=== PATIENT | female | born 1945 | race Caucasian/White ===

== ENCOUNTER → 2016-12-03 | Outpatient (CLI) | payer OTHER ==
[~2016-12-03] VITALS: Ht 165.1 cm; Wt 106.6 kg
[~2016-12-03] MED LIST: ALEVE220 M1 PO; ATENOLOL 100MG100 M2 PO; ATENOLOL 100MG100 MG; ATIVAN0.5 MG PO; BIOTIN1 M1 PO; BUPROPION; CALCIUM CITRAT1 EA15; CELEXA 20 MG TA20 M1 PO; CIPRO500 MG PO; COLACE100 MG PO; COZAAR 25 MG TA25 M1; CRESTOR; CRESTOR10 MG PO; DIOVAN; DIOVAN320 MG PO; ESTER-C 1,0001 EACH; ESTRACE1 TUBE; EVISTA; EVISTA PO; EVISTA60 MG; HYDROCODONE-APA1 TA1 PO; LANOXIN 0.120.125 M1; LASIX; LASIX 20 MG TAB20 MG PO; LASIX 40 MG TAB40 M2 PO; LEVAQUIN 500 M500 M2 PO; LOSARTAN POTAS100 MG PO; MELATONIN10 M3; MELATONIN3 MG PO; METOPROLOL SUCC25 M1 PO; NORVASC10 MG PO; OSTEO BI-FLEX1 EAC1; OSTEO BI-FLEX1 EAC1 PO; OXYBUTYNIN 5 MG5 M2; POTASSIUM20 PO; PRADAXA150 MG PO; SENOKOT-S1 TA1 PO; VITAMIN B-12500 MCG PO; VITAMINC500 PO; WELLBUTRIN SR150 MG PO; XARELTO10 M1; XARELTO20 MG; XARELTO20 MG PO
--- NOTE | ~2016-12-03 | CATHLAB ---
Formerly [facility] [place] [address] INVASIVE PROCEDURE REPORT Name: SUZANNE DE PAZ Room #: REG CL [facility]#: [id number] Admission: 12/03/16 Attend Phys: Hunter Quiles MD Discharge: Date of : 47 Date of Service: 12/03/16 0911 Report #: [id number] THIS REPORT FOR: //name// CC: Hunter Zhou DATE OF SERVICE: 12/03/2016 CARDIAC CATHETERIZATION REPORT INDICATION: Dyspnea/abnormal nuclear stress test. Full risks, benefits and alternatives of cardiac catheterization were explained to the patient. All questions were answered. Informed consent was obtained. A Barbeau test was performed on the right radial artery. The right wrist area was prepped and draped in a sterile manner. Lidocaine was given subcutaneously. A 6-Citizen Of [place] sheath was inserted into the right radial artery via modified Seldinger technique. Nitroglycerin and verapamil was injected through that sheath. 3000 units of heparin was given through peripheral IV. CORONARY ANATOMY: The left main artery is a large caliber vessel, with no flow-limiting lesions. The LAD is a moderate-sized caliber vessel, travelling down the anterior wall and wrapping around the apex. There is mild calcification in the proximal segment, with mild disease, 20%. The first and second diagonal arteries are [id number]-iy-[id number] sized caliber vessels, with no flow-limiting lesions. There is a ramus artery, of moderate-sized caliber, with no flow-limiting lesions. The left circumflex artery gives off 1 moderate-sized obtuse marginal artery, with no flow-limiting lesions. The RCA is a dominant vessel, supplying a PDA and posterolateral branches. There were no flow-limiting lesions in the RCA. The LVEDP is approximately 23 mmHg. There is no gradient across the outflow tract. A ventriculogram was not performed in view of a mildly elevated creatinine level. At the end of the procedure, the sheath was removed and a Vasc band was applied for hemostasis. [facility] [address] [place] [address] INVASIVE PROCEDURE REPORT Name: DE PAZSUZANNE EMILY Room #: REG [facility]#: [id number] Admission: 12/03/16 Attend Phys: Hunter Quiles MD Discharge: Date of : 47 Date of Service: 12/03/16910 Report #: [id number] IMPRESSION: 1. Mild disease in the left anterior descending. 2. Right dominant coronary system. 3. Recommend medical therapy. <ELECTRONICALLY SIGNED> By: Hunter Quiles MD 12/03/1645 0 Hunter Quiles MD /nt
[2016-12-03 07:03] VITALS: BP 124/76
[2016-12-03 07:15] LABS: HEMOGLOBIN 10.8 gm/dL (12.0-15.0)
[2016-12-03 07:42] LABS: CREATININE 1.5 mg/dL (0.6-1.3); POTASSIUM 3.6 mmol/L (3.5-5.1)
[2016-12-03 07:52] LABS: HEMATOCRIT 31.1 % (37.0-47.0); MCH 35.4 pg (26.0-34.0); MCHC 34.7 % (28.0-37.0); MCV 102.3 fL (80.0-100.0); RBC 3.04 mil/uL (4.20-5.00); WBC 4.5 thou/uL (4.0-11.0)
== END | disposition home or self-care (01) ==
LOC: CATH 06:32
PROVIDERS: Internal Medicine Cardiovascular Disease
DX: I25.10 Atherosclerotic heart disease of native coronary artery without angina pectoris (principal); I10 Essential (primary) hypertension; E78.00 Pure hypercholesterolemia, unspecified; E66.09 Other obesity due to excess calories; F32.9 Major depressive disorder, single episode, unspecified; I48.91 Unspecified atrial fibrillation; Z98.890 Other specified postprocedural states; Z90.710 Acquired absence of both cervix and uterus; Z87.891 Personal history of nicotine dependence

== ENCOUNTER 2017-04-26 14:42 | Inpatient (IN) | payer OTHER ==
[~2017-04-26] VITALS: Ht 167.6 cm; Wt 106.9 kg
--- NOTE | ~2017-04-26 | EKG ---
[address] [address] ELECTROCARDIOGRAM REPORT Name: SUZANNE DE PAZ Room #: 217-[facility]#: [id number] Admission: 04/26/17 Attend Phys: Carmenza Max MD Discharge: 04/27/17 Date of : 47 Report #: [id number] THIS REPORT FOR: //name// [facility] Test Date: 2017-04-27 Test Time: 09:13:51 Pat Name: SUZANNE DE PAZ Department: Room: 217 Gender: F Vp Software Engineering: Zak BHAGAT : 1945 Requested By: Keke Quintana Order Number: [id number] MD: Jerad Perez Measurements Intervals [place] Rate: 86 P: NE: QRS: 21 QRSD: 100 T: 16 QT: 384 QTc: 460 Interpretive Statements Atrial fibrillation Low voltage, extremity and precordial leads Compared to ECG 02/02/2016 21:48:38 T-wave abnormality no longer present Electronically Signed On 04-28-2017 12:46:01 CDT by Jerad Perez [email or web address] <ELECTRONICALLY SIGNED> By: Jerad Perez MD 04/28/17 1246 2 2 Jerad Perez MD /CHRISTIN
[2017-04-26 14:52] VITALS: BP 178/153
[2017-04-26 15:08] LABS: HEMATOCRIT 32.5 % (37.0-47.0); HEMOGLOBIN 11.4 gm/dL (12.0-15.0); MCH 37.6 pg (26.0-34.0); MCHC 35.2 g/dL (28.0-37.0); MCV 106.8 fL (80.0-100.0); PLATELET COUNT 165 thou/uL (150-400); RBC 3.04 mil/uL (4.20-5.00); RDW 14.5 % (10.5-14.5)
[2017-04-26 15:11] LABS: MANUAL DIFF YES
[2017-04-26 15:17] LABS: CREATININE 2.5 mg/dL (0.6-1.0); POTASSIUM 4.8 mmol/L (3.5-5.1)
[2017-04-26 15:54] LABS: ABSOLUTE NEUTROPHILS 3.8 thou/uL (1.4-8.2); TOTAL CELL COUNT 100
[2017-04-26 15:56] LABS: POLYCHROMASIA OCCASIONAL
[2017-04-26 15:58] LABS: ANISOCYTOSIS 2+
[2017-04-26 15:59] LABS: MACROCYTES 1+
[2017-04-26 17:24] VITALS: BP 111/56
[2017-04-26 17:45] VITALS: BP 109/64
[2017-04-26 18:26] LABS: APTT 51.3 Seconds (24.5-32.8); INR 1.6; PROTIME 16.7 Seconds (9.3-11.4)
[2017-04-26 20:32] VITALS: BP 122/66
[2017-04-26] MEDS ORDERED: POTASSIUM20 PO (20:37)
[2017-04-26] MEDS ORDERED: LASIX 20 MG TAB20 MG PO (20:38)
[2017-04-26] MEDS ORDERED: PRADAXA75 MG PO (20:38)
[2017-04-27] VITALS (7 sets, daily range): BP systolic 117–133; BP diastolic 76–83
[2017-04-27 04:15] LABS: HEMATOCRIT 30.4 % (37.0-47.0); HEMOGLOBIN 10.7 gm/dL (12.0-15.0); MCH 37.8 pg (26.0-34.0); MCHC 35.1 g/dL (28.0-37.0); MCV 107.7 fL (80.0-100.0); PLATELET COUNT 106 thou/uL (150-400); RBC 2.82 mil/uL (4.20-5.00); RDW 13.8 % (10.5-14.5); WBC 5.5 thou/uL (4.0-11.0)
[2017-04-27 04:16] LABS: MANUAL DIFF YES
[2017-04-27 04:26] LABS: CALCIUM 8.3 mg/dL (8.5-10.1); CREATININE 1.7 mg/dL (0.6-1.0); POTASSIUM 4.3 mmol/L (3.5-5.1)
[2017-04-27 04:43] LABS: ABSOLUTE NEUTROPHILS 2.9 thou/uL (1.4-8.2); MACROCYTES 2+; METAMYELOCYTES 1 %; MYELOCYTES 1 %; TOTAL CELL COUNT 100
== END 2017-04-27 18:45 | disposition home or self-care (01) | DRG 896 ==
LOC: ER 14:42 → 2N 16:49 → EROBS 16:49 → 2N 17:25
PROVIDERS: Emergency Medicine; Internal Medicine Endocrinology, Diabetes & Metabolism
DX: F10.239 Alcohol dependence with withdrawal, unspecified (principal); G92 Toxic encephalopathy; N17.9 Acute kidney failure, unspecified; E78.00 Pure hypercholesterolemia, unspecified; Z79.899 Other long term (current) drug therapy; I11.0 Hypertensive heart disease with heart failure; I50.9 Heart failure, unspecified; F32.9 Major depressive disorder, single episode, unspecified; I48.2 Chronic atrial fibrillation; I95.9 Hypotension, unspecified; E86.9 Volume depletion, unspecified; E78.5 Hyperlipidemia, unspecified; Z90.710 Acquired absence of both cervix and uterus; Z88.0 Allergy status to penicillin; Z87.891 Personal history of nicotine dependence; Z79.01 Long term (current) use of anticoagulants; Z98.84 Bariatric surgery status; Z82.49 Family history of ischemic heart disease and other diseases of the circulatory system; S00.83XA Contusion of other part of head, initial encounter; W18.39XA Other fall on same level, initial encounter; Y93.89 Activity, other specified; Y92.89 Other specified places as the place of occurrence of the external cause; Y99.8 Other external cause status
CPT/HCPCS: 10081

== ENCOUNTER → 2018-10-18 | Outpatient (CLI) | payer OTHER ==
[~2018-10-18] MED LIST changes: +PRADAXA75 MG PO
--- NOTE | ~2018-10-18 | 2DMMODE ---
[facility] [place] [address] 2 D/M-MODE ECHOCARDIOGRAM Name: SUZANNE DE PAZ Room #: REG [facility]#: [id number] Admission: 10/18/18 Attend Phys: Hunter Quiles MD Discharge: Date of : 47 Date of Service: 10/18/18 1308 Report #: [id number] THIS REPORT FOR: //name// APPROVED REPORT Study performed: 10/18/2018 11:13:12 EXAM: Comprehensive 2D, Doppler, and color-flow Echocardiogram Patient Location: Out-Patient Room #: Echo 2 Status: routine BSA: 2.10 HR: 90 bpm BP: 140/72 mmHg Rhythm: Atrial Fibrillation Other Information Study Quality: Adequate Technically limited study due to body habitus. Risk Factors: Cardiac Risk Factors: FHX of CAD Indications Atrial Fibrillation 2D Dimensions RVDd: 36.29 mm IVSd: 13.65 (7-11mm) LVOT Diam: 19.98 (18-24mm) LVDd: 52.20 mm PWd: 11.27 (7-11mm) Ascending Ao: 33.32 (22-36mm) LVDs: 37.05 (25-40mm) Aortic Root: 27.01 mm IVC: 25.00 mm Volumes Left Atrial Volume (Systole) Single Plane 4CH: 86.59 mL Single Plane 2CH: 51.79 mL LA ESV Index: 35.00 mL/m2 Aortic Valve AoV Peak Farhat.: 1.58 m/s AO Peak Gr.: 9.93 mmHg LVOT Max P.80 mmHg LVOT Max V: 1.09 m/s JOAN Vmax: 2.18 cm2 [facility] [address] [place] [address] 2 D/M-MODE ECHOCARDIOGRAM Name: SUZANNE DE PAZ Room #: REG [facility]#: [id number] Admission: 10/18/18 Attend Phys: Hunter Quiles MD Discharge: Date of : 47 Date of Service: 10/18/18 1308 Report #: [id number] Pulmonary Valve PV Peak Farhat.: 1.01 m/s PV Peak Gr.: 4.10 mmHg Tricuspid Valve TR Peak Farhat.: 3.34 m/s TR Peak Gr.: 44.70 mmHg PA Pressure: 54.70 mmHg Left Ventricle The left ventricle is normal size. There is normal LV segmental wall motion. There is normal left ventricular wall thickness. The left ventricular systolic function is normal. The left ventricular ejection fraction is within the normal range. LVEF is 55-60%. This study is not technically sufficient to allow evaluation of the LV diastolic function due to atrial fibrillation. Right Ventricle The right ventricle is normal size. The right ventricular systolic function is normal. Atria Left atrium is dilated. Right atrium is dilated. Aortic Valve Aortic valve is calcified. Aortic valve is grossly normal in structure. No aortic regurgitation is present. There is no aortic valvular stenosis. Mitral Valve Mild mitral annular calcification. The mitral valve is normal in structure and function. Mild mitral regurgitation. No evidence of mitral valve stenosis. Tricuspid Valve The tricuspid valve is normal in structure. Moderate tricuspid regurgitation. Estimated PAP 54.70 mmHg. Moderate pulmonary hypertension. Pulmonic Valve The pulmonary valve is normal in structure. Trace pulmonic regurgitation. Great Vessels The aortic root is normal in size. The ascending aorta is normal in size. IVC is dilated and collapses >50% with inspiration. [facility] [address] [place] [address] 2 D/M-MODE ECHOCARDIOGRAM Name: SUZANNE DE PAZ Room #: REG [facility]#: [id number] Admission: 10/18/18 Attend Phys: Hunter Quiles MD Discharge: Date of : 47 Date of Service: 10/18/18 1308 Report #: [id number] Pericardium There is no pericardial effusion. <Conclusion> The left ventricle is normal size. There is normal left ventricular wall thickness. The left ventricular systolic function is normal. The right ventricle is normal size. Left atrium is dilated. Right atrium is dilated. Aortic valve is calcified. Mild mitral regurgitation. Moderate tricuspid regurgitation. Estimated PAP 54.70 mmHg. Moderate pulmonary hypertension. <ELECTRONICALLY SIGNED> By: Hunter Quiles MD 10/18/181307 07 07 Hunter Quiles MD /INF
== END ==
LOC: CV 09:06
DX: I08.1 Rheumatic disorders of both mitral and tricuspid valves (principal); I48.91 Unspecified atrial fibrillation; I27.20 Pulmonary hypertension, unspecified

== ENCOUNTER 2019-12-28 16:46 | Inpatient (IN) | payer OTHER ==
[~2019-12-28] VITALS: Ht 167.6 cm; Wt 115.6 kg
[2019-12-28 16:49] VITALS: BP 169/117
[2019-12-28 19:40] LABS: ABSOLUTE NEUTROPHILS 3.9 thou/uL (1.4-8.2); BASOPHILS 0.3 % (0.0-2.0); EOSINOPHILS 0.2 % (0.0-3.0); HEMATOCRIT 43.2 % (37.0-47.0); HEMOGLOBIN 14.7 gm/dL (12.0-15.0); LYMPHOCYTES 10.1 % (24.0-44.0); MCH 33.4 pg (26.0-34.0); MCV 98.1 fL (80.0-100.0); PLATELET COUNT 111 thou/uL (150-400); POLYS 78.4 % (36.0-66.0); RDW 13.5 % (10.5-14.5)
[2019-12-28 19:43] LABS: CALCIUM 8.6 mg/dL (8.5-10.1); CREATININE 1.1 mg/dL (0.6-1.0); POTASSIUM 3.9 mmol/L (3.5-5.1)
[2019-12-28 19:49] LABS: ALBUMIN 3.7 g/dL (3.4-5.0); TOTAL BILIRUBIN 1.7 mg/dL (<0.1-1.0); TOTAL PROTEIN 8.4 g/dL (6.4-8.2)
[2019-12-28 21:42] LABS: URINE BILIRUBIN 1+ (Negative); URINE BLOOD 3+ (Negative); URINE CLARITY TURBID; URINE COLOR YELLOW; URINE GLUCOSE-RANDOM* NEGATIVE (Negative); URINE KETONES 1+ (Negative); URINE NITRITE-REFLEX NEGATIVE (Negative); URINE PROTEIN (DIPSTICK) TRACE (Negative)
[2019-12-28 21:47] LABS: URINE LEUKOCYTES-REFLEX 2+ (Negative)
[2019-12-28 22:11] LABS: SQUAMOUS 0-3 Few /LPF (0-3)
[2019-12-28 22:13] LABS: CASTS None Seen /LPF (None Seen)
[2019-12-28 22:14] LABS: CALCIUM OXALATE 4-10 Moderate /LPF (None Seen); URINE RBC 3-10 Few /HPF (0-2); URINE WBC-REFLEX 0-5 Rare /HPF (0-5)
[2019-12-28 23:11] VITALS: BP 142/78
[2019-12-29 00:04] VITALS: BP 117/75
[2019-12-29 00:46] VITALS: BP 128/96
[2019-12-29] MEDS ORDERED: EFFER-K 20 MEQ20 ME1 PO (01:19)
[2019-12-29] MEDS ORDERED: FUROSEMIDE 40 M40 MG PO (01:19)
[2019-12-29] MEDS ORDERED: METOPROLOL SUCC50 MG PO (01:20)
[2019-12-29] MEDS ORDERED: TRUSOPT OCUMETE10 ML EA. EYE (01:21)
[2019-12-29] MEDS ORDERED: ELIQUIS5 MG PO (01:22)
[2019-12-29] MEDS ORDERED: OSTEO BI-FLEX1 EAC1 PO (01:23)
[2019-12-29] MEDS ORDERED: MELATONIN10 M1 PO (01:24)
[2019-12-29] MEDS ORDERED: VITAMIN D32000 UNI2 PO (01:52)
--- NOTE | 2019-12-29 06:28 | NUR ---
ADMITTED FROM ER UNDER 'S CARE. EVALUATED BY THAO GRACIA WRAPPER REWINDER FOR . AXOX4. VSS. NO S/S ACUTE DISTRESS NOTED OR REPORTED AT THIS TIME. WILL CONT TO MONITOR FOR ANY CHANGES IN CONDITION.
[2019-12-29 07:10] VITALS: BP 137/91
[2019-12-29 09:27] LABS: HEMATOCRIT 39.4 % (37.0-47.0); HEMOGLOBIN 13.5 gm/dL (12.0-15.0); MCH 33.2 pg (26.0-34.0); MCHC 34.1 g/dL (28.0-37.0); MCV 97.3 fL (80.0-100.0); RBC 4.05 mil/uL (4.20-5.00); RDW 13.9 % (10.5-14.5); WBC 5.2 thou/uL (4.0-11.0)
[2019-12-29 09:52] LABS: CALCIUM 7.7 mg/dL (8.5-10.1); CREATININE 0.9 mg/dL (0.6-1.0); POTASSIUM 3.7 mmol/L (3.5-5.1)
[2019-12-29 09:59] LABS: ABSOLUTE NEUTROPHILS 3.4 thou/uL (1.4-8.2); MAGNESIUM 1.6 mg/dL (1.8-2.4); PLATELET COUNT 92 thou/uL (150-400); PLATELET ESTIMATE NORMAL
--- NOTE | 2019-12-29 12:15 | NUR ---
Received awake on bed. Due medications given as prescribed, able to swallow meds w/o difficulty. On room air, saturating at 97%. A+Ox4. On heart healthy diet- encouraged to eat and drink, pt says she does not have appetite today, offered snacks- will let nurse know if she wants any. With external alanis in place- output measured and recorded accordingly. With NS at 75cc/hr, infusing well at L upper arm. Assisted in ADLs. Pt coughing- with regular breathing treatments prescribed. Falls bundle in place. Visited by relative today. Pt complained of headache- PRN tylenol given as prescribed.
[2019-12-29 14:31] VITALS: BP 127/66
--- NOTE | 2019-12-29 14:48 | NUR ---
RECEIVED REPORT FROM JANNY JOHN ON 4W. PT IS AOX4, NO C/O PAIN AT THIS TIME, & VSS. PT EDUCATED EQUIPMENT MAINTENANCE TECHNICIAN LIGHT, FALL PRECAUTIONS IN PLACE. PT REPORTS SHE IS TIRED AND WOULD LIKE TO GO BACK TO SLEEP. WILL CONTINUE TO MONITOR.
--- NOTE | 2019-12-29 16:11 | NUR ---
PT ADMITTED RELATED TO UTI,SEPSIS. CM REVIEWED CHART AND SPOKE WITH CARE TEAM. CM MET WITH PT AT BEDSIDE THIS DAY. PT IS A&O X4. CM ROLE INTRODUCED. PT INDICATED SHE LIVES IN A HOUSE WITH HER SPOUSE WITH 2 STEPS TO ENTER AND NO STEPS INSIDE. PT INDICATED SHE HAS A 4WW FOR USE AT HOME. PT INIDCATED SHE PLANS TO RETURN HOME ONCE MEDICALLY STABLE. CM TO FOLLOW INDICATED WITH DC PLANNING.
[2019-12-29 20:11] VITALS: BP 141/83
[2019-12-29 22:53] VITALS: BP 141/83
--- NOTE | 2019-12-30 03:21 | NUR ---
ASSUMED CARE OF PATIENT AT SHIFT CHANGE. ASSESSMENT CHARTED. MEDICATIONS GIVEN PER MAR. PATIENT IS ALERT AND ORIENTED, CAN BE FORGETFUL AT TIMES, AND IS HARD OF HEARING. PATIENT DENIES PAIN. VSS, O2 SATS CURRENTLY 97% ON RA. PATIENT HAS A NON PRODUCTIVE COUGH AND EXPIRATORY WHEEZING. PROVIDER AWARE. CONTINUING TO RECIEVE BR. TX VIA RT. PATIENT RECIEVED DOSE OF IV ABX AND CURRENTLY RECIEVING NS AT 7SMLS/HR. IV FLUSHED W GOOD BLOOD RETURN, PATENT AND INTACT. PATIENT HAS BEEN GETTING UP WITH ASSIST OF 1 PERSON TO TOILET. TOLERATES WELL WITH MINIMAL SOA NOTED. PATIENT HAS SOME INCONTINENCE EPISODES AND WEARS BRIEFS FROM HOME. FALL PRECAUTIONS IN PLACE; BED ALARM ON PATIENT FORGETS TO CALL AT TIMES. CM IS FOLLOWING, PLAN IS TO D/C BACK HOME W SPOUSE ONCE MEDICALLY STABLE. WILL CONTINUE TO MONITOR AND FOLLOW PLAN OF CARE.
[2019-12-30 04:43] LABS: HEMATOCRIT 36.3 % (37.0-47.0); HEMOGLOBIN 12.3 gm/dL (12.0-15.0); MCH 33.1 pg (26.0-34.0); MCHC 33.9 g/dL (28.0-37.0); MCV 97.7 fL (80.0-100.0); RBC 3.72 mil/uL (4.20-5.00); RDW 13.7 % (10.5-14.5); WBC 3.9 thou/uL (4.0-11.0)
[2019-12-30 05:16] LABS: CALCIUM 7.6 mg/dL (8.5-10.1); CREATININE 0.8 mg/dL (0.6-1.0); POTASSIUM 3.6 mmol/L (3.5-5.1)
[2019-12-30 07:44] VITALS: BP 149/85
--- NOTE | 2019-12-30 16:04 | NUR ---
DISCHARGE PLANNING. ANTICIPATED WEEKEND DISCHARGE PLANNED. HOME WITH HOME HEALTH SERVICES. PATIENT REFERRAL FAXED TO [facility] PER REQUEST. CALL PLACED TO [facility] TO NOTIFY. SHOULD PATIENT BE DISCHARGED AND HOME HEALTH ORDERS WRITTEN, PLEASE FAX ORDERS TO [facility]. [facility] INTAKE CONTACT NUMBER [phone] FAX NUMBER [phone]. THANK YOU.
[2019-12-30 16:08] VITALS: BP 149/85
--- NOTE | 2019-12-30 16:20 | NUR ---
SW reviewed chart and spoke with nursing and attending physician. Pt [facility] from and is progressing towards goals for discharge. Discharge home is anticipated for tomorrow. [facility] can accept pt on service if needed. MARISSA is following to assist as needed with discharge planning.
[2019-12-30 19:41] VITALS: BP 157/93
[2019-12-30 21:21] VITALS: BP 157/93
--- NOTE | 2019-12-31 05:07 | NUR ---
ASSUMED CARE OF PATIENT AT SHIFT CHANGE. ASSESSMENT CHARTED. MEDICATIONS GIVEN PER JAN. PATIENT IS ALERT AND ORIENTED BUT CONTINUES TO SHOW SOME FORGETFULNESS. PATIENT CONTINUES TO HAVE A COUGH W LOOSE SPUTUM. PRN COUGH SUPPRESSANT ORDERED FROM CONSTRUCTION MILLWRIGHT PROVIDER AND ADMINISTERED. PATIENT IS WEARING BRIEFS FROM HOME D/T SOME EPISODES OF INCONTINENCE. PATIENT REPORTED HAVING A BM DURING THE DAY; LOOSE AND DIARRHEA LIKE. DENIED ANY ABDOMINAL PAIN OR TENDERNESS. LUNGS HAVE DECREASED WHEEZING BUT STILL COURSE. O2 SATS WNL ON RA. PER SW, PLAN IS TO D/C HOME W HOME HEALTH TODAY 12/31. CONTINUES TO GET UP W/O CALLING. BED ALARM ON, FREQUENT MONITORING DONE. IV SITE PATENT AND INTACT, COVERED W PROTECTIVE WRAP FROM HX OF PULLING IV'S OUT. WILL CONTINUE TO MONITOR AND FOLLOW PLAN OF CARE
[2019-12-31 07:53] VITALS: BP 163/91
[2019-12-31 08:52] VITALS: BP 163/91
--- NOTE | 2019-12-31 10:09 | NUR ---
PT A&OX4. AMBULATES WITH STAND BY ASSIST. IV INTACT IN R HAND. LS ARE COURSE AND DIMINISHED. HAS PRODUCTIVE COUGH STATES CLEAR IN COLOR. PT IS SLEEPY TODAY. BED ALARM SOFA INSPECTOR LIGHT W/I REACH.
[2019-12-31] MEDS ORDERED: CEFUROXIME500 MG PO (10:32)
[2019-12-31] MEDS ORDERED: TESSALON PERLE100 MG PO (10:32)
[2019-12-31] MEDS ORDERED: PROAIR HFA8.5 GM INH (10:34)
[2019-12-31 15:14] VITALS: BP 145/92
--- NOTE | 2019-12-31 16:40 | NUR ---
DC ORDERS RECIEVED. IV REMOVED FROM L HAND. DC INSTRUCTIONS, F/U APPOINTMENT AND SCRIPTS REVIEWED WITH PT. THIS RN ESCORTED PT VIA W/C TO [facility].
== END 2019-12-31 16:35 | disposition home health service (06) | DRG 872 ==
LOC: ER 16:46 → 4W 22:24 → EROBS 22:24 → 4N 22:24 → 4W 12-29 00:01 → 4N 12-29 14:00
PROVIDERS: Emergency Medicine; Nurse Practitioner; ADMIT Hospitalist
DX: A41.9 Sepsis, unspecified organism (principal); N39.0 Urinary tract infection, site not specified; E87.1 Hypo-osmolality and hyponatremia; N17.9 Acute kidney failure, unspecified; I48.21 Permanent atrial fibrillation; Z68.41 Body mass index [BMI] 40.0-44.9, adult; E78.00 Pure hypercholesterolemia, unspecified; F32.9 Major depressive disorder, single episode, unspecified; E86.0 Dehydration; E78.5 Hyperlipidemia, unspecified; I12.9 Hypertensive chronic kidney disease with stage 1 through stage 4 chronic kidney disease, or unspecified chronic kidney disease; N18.9 Chronic kidney disease, unspecified; E53.8 Deficiency of other specified B group vitamins; E55.9 Vitamin D deficiency, unspecified; R63.4 Abnormal weight loss; G47.00 Insomnia, unspecified; Z90.710 Acquired absence of both cervix and uterus; Z79.01 Long term (current) use of anticoagulants; Z82.49 Family history of ischemic heart disease and other diseases of the circulatory system; Z90.89 Acquired absence of other organs; Z79.899 Other long term (current) drug therapy; Z88.0 Allergy status to penicillin; Z87.891 Personal history of nicotine dependence
CPT/HCPCS: 10091

== ENCOUNTER → 2020-04-30 | Outpatient (CLI) | payer OTHER ==
[~2020-04-30] MED LIST changes: +CEFUROXIME500 MG PO; +EFFER-K 20 MEQ20 ME1 PO; +ELIQUIS5 MG PO; +FUROSEMIDE 40 M40 MG PO; +MELATONIN10 M1 PO; +METOPROLOL SUCC50 MG PO; +PROAIR HFA8.5 GM INH; +TESSALON PERLE100 MG PO; +TRUSOPT OCUMETE10 ML EA. EYE; +VITAMIN D32000 UNI2 PO
== END ==
LOC: SJCVCIMAG 11:17
PROVIDERS: ATTEND Internal Medicine Cardiovascular Disease
DX: I08.3 Combined rheumatic disorders of mitral, aortic and tricuspid valves (principal); R94.31 Abnormal electrocardiogram [ECG] [EKG]; I11.9 Hypertensive heart disease without heart failure; E66.9 Obesity, unspecified; I48.21 Permanent atrial fibrillation; Z79.899 Other long term (current) drug therapy; Z87.891 Personal history of nicotine dependence

== ENCOUNTER → 2020-10-17 | Outpatient (CLI) | payer OTHER | LOC: SJCVC 11:39 | PROVIDERS: ATTEND Internal Medicine Cardiovascular Disease | DX: I48.91 Unspecified atrial fibrillation (principal); R94.31 Abnormal electrocardiogram [ECG] [EKG]; I10 Essential (primary) hypertension; R60.9 Edema, unspecified; I25.10 Atherosclerotic heart disease of native coronary artery without angina pectoris; E78.00 Pure hypercholesterolemia, unspecified; Z79.899 Other long term (current) drug therapy; Z87.891 Personal history of nicotine dependence ==

== ENCOUNTER → 2021-01-09 | Outpatient (CLI) | payer OTHER | LOC: SJCVC 11:16 | PROVIDERS: ATTEND Internal Medicine Cardiovascular Disease | DX: R94.31 Abnormal electrocardiogram [ECG] [EKG] (principal); I48.21 Permanent atrial fibrillation; I10 Essential (primary) hypertension; R60.9 Edema, unspecified; E78.2 Mixed hyperlipidemia; R06.02 Shortness of breath; E78.00 Pure hypercholesterolemia, unspecified; M19.90 Unspecified osteoarthritis, unspecified site; Z79.01 Long term (current) use of anticoagulants; Z79.899 Other long term (current) drug therapy; Z87.891 Personal history of nicotine dependence; Z88.0 Allergy status to penicillin ==

== ENCOUNTER → 2021-01-14 | Outpatient (CLI) | payer OTHER | LOC: SJCVC 10:05 | PROVIDERS: ATTEND Internal Medicine Cardiovascular Disease | DX: R60.9 Edema, unspecified (principal); I48.21 Permanent atrial fibrillation; I25.10 Atherosclerotic heart disease of native coronary artery without angina pectoris; I10 Essential (primary) hypertension; E78.00 Pure hypercholesterolemia, unspecified; E78.5 Hyperlipidemia, unspecified; Z79.01 Long term (current) use of anticoagulants; Z72.89 Other problems related to lifestyle ==

== ENCOUNTER → 2021-01-15 | Outpatient (CLI) | payer OTHER | LOC: SJCVCIMAG 01-09 16:37 | PROVIDERS: ATTEND Internal Medicine Cardiovascular Disease | DX: I08.3 Combined rheumatic disorders of mitral, aortic and tricuspid valves (principal); I11.9 Hypertensive heart disease without heart failure; I48.91 Unspecified atrial fibrillation ==

== ENCOUNTER → 2021-04-17 | Outpatient (CLI) | payer OTHER | LOC: SJCVCIMAG 07:32 | PROVIDERS: ATTEND Internal Medicine Cardiovascular Disease | DX: I48.21 Permanent atrial fibrillation (principal); I10 Essential (primary) hypertension; R60.9 Edema, unspecified; R06.02 Shortness of breath; I25.10 Atherosclerotic heart disease of native coronary artery without angina pectoris; M19.90 Unspecified osteoarthritis, unspecified site; E78.5 Hyperlipidemia, unspecified; Z88.0 Allergy status to penicillin; E78.00 Pure hypercholesterolemia, unspecified; G47.30 Sleep apnea, unspecified; Z79.01 Long term (current) use of anticoagulants; Z79.899 Other long term (current) drug therapy; Z87.891 Personal history of nicotine dependence ==

== ENCOUNTER → 2021-04-24 | Outpatient (CLI) | payer OTHER ==
--- NOTE | 2021-04-24 13:58 | CATHLAB ---
[facility] [place] [address] INVASIVE PROCEDURE REPORT Name: SUZANNE DE PAZ Room #: REG [facility]#: [id number] Admission: 04/24/21 Attend Phys: Hunter Quiles MD Discharge: Date of : 47 Report #: [id number] THIS REPORT FOR: cc: Shant Zhou MD, Steven A. MD Park, Jin S. MD ~ APPROVED REPORT Study performed: 04/24/2021 09:53:25 Patient Details Patient Status: Out-Patient Room #: The patient is a 75 year-old female Event Personnel Hunter Quiles Leather Cutter, Kristen Hall RN RN, Myrna Kaufman RTR, DEFENSIVE FIRE CONTROL SYSTEMS OPERATOR Monitor, Stella Calderon Procedures Performed Art Access - R radial artery Coronary Angiography Only [id number] CORANG 92169 Initial Mod Sed Same Phys/QHP Gr5y 965011 Hemostasis with Hemoband 77482 Mod Sed Same Phys/QHP Ea 441945 Indication Atrial fibrillation, Dyspnea, Positive stress test Risk Factors Obesity, HypercholesterolemiaPhysical Activity, Hypertension Procedure Narrative The Right Wrist^ was infiltrated with 1% Lidocaine subcutaneous anesthesia. A TRANSRADIAL SLENDER 6F GLIDESHEATH KIT #[id number] sheath was inserted into the Right Radial Artery^. Coronary angiography was performed using coronary diagnostic catheters. The right coronary system was accessed and visualized with a 5FR JR 4 #[id number] catheter. The left coronary system was accessed and visualized with a 5FR JL 3.5 #[id number] catheter. Closure device was deployed with a Fr VASC BAND L 27CM #[id number]. The patient tolerated the procedure well and there were no complications associated with the procedure. There was no hematoma. Intraoperative Conscious Sedation [facility] [address] [place] [address] INVASIVE PROCEDURE REPORT Name: SUZANNE DE PAZ Room #: REG [facility]#: [id number] Admission: 04/24/21 Attend Phys: Hunter Quiles MD Discharge: Date of : 47 Report #: [id number] Sedation start time: 10:37 Case end Time: 11:07 Fentanyl 50 mcg Versed 0.2 mg Fluoro Time: 6.00 minutes Dose: DAP 01978.80 cGycm2 1539 mGy Contrast Type and Amount: Omnipaque 85 ml Coronary Angiography The patient's coronary anatomy is right dominant. Diagnostic Cath Left Main The left main artery is a large-caliber vessel, appears angiographically normal. LAD The LAD is a moderate-sized caliber vessel, traverses the anterior wall and wraps around the apex. There is mild disease in the proximal segment, less than 20%. Diagonal 1 This is a moderate-sized caliber vessel, patent with no flow-limiting lesions. Diagonal 2 This is a moderate-sized caliber vessel, patent with no flow-limiting lesions. Circumflex The left circumflex artery is a moderate-sized caliber vessel, appears angiographically normal. OM1 This is a moderate-sized caliber vessel, patent with no flow-limiting lesions. Right Coronary The RCA is a moderate to large caliber vessel, with mild disease in the midsegment, less than 20%. R PDA This is a small to moderate-sized caliber vessel, patent with no flow-limiting lesions. RPLV This is a small to moderate-sized caliber vessel, patent with no flow-limiting lesions. Ramus This is a moderate-sized caliber vessel, patent with no flow-limiting lesions. Left Ventriculography Left Ventriculography was not performed. Ejection Fraction was 50% based off patient's Nuclear Cardiac Stress Test. Hemodynamics The aortic pressure is 121/79 mmHg with a mean of 100 mmHg. Conclusion 1. There is mild disease in the LAD and RCA. 2. This is a right dominant system. [facility] [address] [place] [address] INVASIVE PROCEDURE REPORT Name: SUZANNE DE PAZ Room #: REG [facility]#: [id number] Admission: 04/24/21 Attend Phys: Hunter Quiles MD Discharge: Date of : 47 Report #: [id number] 3. There is borderline normal LV systolic function. 4. Recommend aggressive risk factor management. <ELECTRONICALLY SIGNED> By: Hunter Quiles MD 04/24/21 1358 1358 1358 Hunter Quiles MD /INF
== END | disposition home or self-care (01) ==
LOC: CATH 07:54
PROVIDERS: ATTEND Internal Medicine Cardiovascular Disease
DX: R94.39 Abnormal result of other cardiovascular function study (principal); I25.10 Atherosclerotic heart disease of native coronary artery without angina pectoris; R06.00 Dyspnea, unspecified; I10 Essential (primary) hypertension; I48.91 Unspecified atrial fibrillation; E78.00 Pure hypercholesterolemia, unspecified; E66.9 Obesity, unspecified; G47.33 Obstructive sleep apnea (adult) (pediatric); M19.90 Unspecified osteoarthritis, unspecified site; F32.9 Major depressive disorder, single episode, unspecified; Z98.890 Other specified postprocedural states; Z79.899 Other long term (current) drug therapy; Z88.0 Allergy status to penicillin; Z79.01 Long term (current) use of anticoagulants

== ENCOUNTER → 2021-05-30 | Outpatient (CLI) | payer OTHER | LOC: RAD 12:44 | PROVIDERS: ATTEND Internal Medicine Pulmonary Disease | DX: I51.7 Cardiomegaly (principal); R06.00 Dyspnea, unspecified ==

== ENCOUNTER → 2021-08-07 | Outpatient (CLI) | payer OTHER | LOC: SJCVC 10:37 | PROVIDERS: ATTEND Internal Medicine Cardiovascular Disease | DX: R94.31 Abnormal electrocardiogram [ECG] [EKG] (principal); I48.21 Permanent atrial fibrillation; I25.10 Atherosclerotic heart disease of native coronary artery without angina pectoris; I10 Essential (primary) hypertension; E78.00 Pure hypercholesterolemia, unspecified; G47.30 Sleep apnea, unspecified; Z88.0 Allergy status to penicillin; Z79.899 Other long term (current) drug therapy; Z87.891 Personal history of nicotine dependence ==